=== PATIENT | female | born 1935 | race Caucasian/White ===

== ENCOUNTER 2018-07-11 14:04 | Inpatient (IN) | payer BC ==
[2018-07-11 15:28] LABS: BASO % 0.5 % (0-2.0); EOS % 0.4 % (0-4.5); HEMOGLOBIN 12.6 GM/dL (10.7-15.3); LYMPH % 26.6 % (8-40); MCH 32.5 pg (25.7-33.7); MCHC 33.1 g/dl (32.0-36.0); MEAN CELL VOLUME 98.2 fl (80-96); MEAN PLT VOLUME 9.5 fl (7.5-11.1); NEUT % 66.5 % (42.8-82.8); PLATELET COUNT 193 K/MM3 (134-434); RBC 3.87 M/mm3 (3.60-5.2); RDW 15.8 % (11.6-15.6)
--- NOTE | 2018-07-11 15:35 | PDOC ---
History of Present Illness - General Chief Complaint: Weakness Stated Complaint: Weakness - History of Present Illness Initial Comments: Amy Mireles is an 83yo woman with a PMH of HTN, CAD s/p "open heart surgery" (CABG?), chronic low back pain w/ BLE weakness L>R, overactive bladder , and dysfunctional vaginal bleeding who presents today reporting generalized weakness and worsening RLE weakness since she woke today along with hypotension. She reports that she was concerned that her BP was SBP 100 early this mon. She states that she checks every morning and evening because of her previous heart surgery. Per her son, at bedside, her BP is generally low in the morning; he is unsure how frequently it is down to the low 100s though states it has happened in the past. Ms Mireles states that she felt very weak and wobbly throughout the morning, but she was able to do housework by holding herself up on furniture. She rechecked her BP after the chores and noted that it was high, SBP in the upper 160's. She says that it has been "all over the place" recently , and she was concerned because "it is supposed to be 120/80." Ms Mireles states that she has leg weakness all the time and sees neurology ( Dr Doyle) and a spine/pain specialist who does injections. She says that she has chronic back pain because of "discs." Her left leg generally is weaker than the right, though, and she only started having significant problems with the right leg today. Ms Mireles denies any new medications, fevers, chills, nausea/vomiting, confusion, headache, or other recent symptoms. She says that she avoids drinking water because of the overactive bladder, and she recently started on oxybutinin. Per review, she also takes hydrocholorothiazide. Her son is very concerned about the number of medications that she takes daily and feels they are contributing to her symptoms. Past History - Past Medical History Allergies/Adverse Reactions: Allergies Allergy/AdvReac Type Severity Reaction Status Date / Time No Known Drug Allergies Allergy Verified 07/11/18 14:42 Home Medications: Ambulatory Orders Amlodipine Besylate [Norvasc -] 5 mg PO DAILY 07/11/18 Atenolol [Tenormin] 50 mg PO DAILY 07/11/18 Atorvastatin Calcium 40 mg PO HS 07/11/18 Clopidogrel Bisulfate [Clopidogrel] 75 mg PO DAILY 07/11/18 Ergocalciferol [Vitamin D2] 50,000 unit PO Q7D@1000 07/11/18 Hydrochlorothiazide [Hctz -] 25 mg PO DAILY 07/11/18 Levothyroxine [Synthroid -] 25 mcg PO DAILY 07/11/18 Lisinopril [Prinivil -] 40 mg PO DAILY 07/11/18 Oxybutynin Chloride [Ditropan Xl] 10 mg PO DAILY 07/11/18 Phenytoin Sodium Extended 100 mg PO TID 07/11/18 Cardiac Disorders: Yes COPD: No HTN: Yes Hypercholesterolemia: Yes Seizures: Yes Thyroid Disease: Yes - Surgical History Cardiac Surgery: Yes - Suicide/Smoking/Psychosocial Hx Smoking History: Never smoked Have you smoked in the past 12 months: No Information on smoking cessation initiated: No Hx Alcohol Use: No Drug/Substance Use Hx: No Review of Systems - Review of Systems Comments:: General: No fevers, no chills, no weight or appetite change, no malaise HEENT: No changes in vision, no changes in hearing, no congestion, no sore throat CV: No chest pain, no palpitations, no LE edema Pulm: No SOB, no cough, no wheezing GI: No nausea or vomiting, no change in bowel habits, no melena : +Frequency, no urgency, no dysuria Musc: +chronic back pain, no joint swelling, no recent injury Skin: No rash, no lesions, no erythema Endo: No excessive thirst, no heat/cold intolerance Heme: No unusual bruising or bleeding, no swollen glands Neuro: See HPI Vasc: No claudication Psych: No recent change in mood, no SI or HI *Physical Exam - Vital Signs Last Vital Signs Temp Pulse Resp BP Pulse Ox 98 F 57 L 13 158/67 99 07/11/18 14:33 07/11/18 14:33 07/11/18 14:33 07/11/18 14:33 07/11/18 14:33 - Physical Exam Comments: General: Comfortable, no acute distress HEENT: PERRL, EOMI, dry lips, voice normal Cards: RRR, no murmur appreciated Pulm: Comfortable on room air, clear to auscultation bilaterally Abd: Soft, nontender, nondistended : No CVA tenderness Ext: Atraumatic. No LE edema. Limited flexion on passive ROM. Vasc: Extremities WWP. Skin: Normal color, no rashes or lesions Neuro: A&Ox3, CN grossly intact, Mild RLE weakness w/ inability to lift leg off bed. BUE strength intact. Unable to relax BLE to passively flex knees Psych: Mood appropriate to situation ED Treatment Course - LABORATORY CBC & Chemistry Diagram: 07/11/18 15:08 07/11/18 17:13 - RADIOLOGY Radiology Studies Ordered: Category Date Time Status CHEST X-RAY PORTABLE* [RAD] Stat Radiology 07/11/18 15:00 Ordered Medical Decision Making - Medical Decision Making 07/11/18 15:24 Amy Mireles is an 83yo woman with a PMH of HTN, CAD s/p "open heart surgery" (CABG?), chronic low back pain w/ BLE weakness, L>R, overactive bladder , and dysfunctional vaginal bleeding who presents today reporting generalized weakness and worsening RLE weakness since she woke today. She reports that her BP was low, around 100, in the morning which is reportedly typical for her. Per discussion with Ms Mireles and her son, it is unclear which symptoms if any are new today. - Generalized weakness and RLE weakness may be new today. Ddx includes anemia, UTI, dehydration, electrolyte abnormality. No focal infectious symptoms or fever , not likely due to infection. No chest pain or SOB, unlikely cardiac. - CBC, CMP, mag, phos, trop, EKG, CXR, UA for evaluation. Dilantin level ordered to verify. - Will attempt to contact pt's outpatient generalist, adjudication specialist, and neurologist (Naeem Menezes, [place]) 07/11/18 16:17 - Spoke to Dr Doyle. Reports that she has significant degenerative brain changes. He was concerned for a possible new CVA 3wks ago and had ordered a CT head, which has not yet been completed. Notes increased tone in BLE. Agrees with plan for new CT to determine if there are new changes. 07/11/18 17:03 - Chemistry hemolized. Reordered. CBC unremarkable - CXR reviewed, no concerning abnormalities - EKG w/ sinus bradycardia, HR 53, incomplete RBBB. 07/11/18 19:57 - Labs unremarkable - CT completed. Multiple chronic abnormalities but no acute pathology appreciated per radiology report - Will need MRI for new LE weakness, possible new CVA. Microblog sent to hospitalist team for admission. 07/11/18 20:57 - Sign out given to Dr Mayorga. Will admit to Dr Salazar's service. Discussed with Dr Melgar. Juliann Chisholm PGY1 *DC/Admit/Observation/Transfer Diagnosis at time of Disposition: Lower extremity weakness - Discharge Dispostion Decision to Admit order: Yes - Referrals Referrals: Cedrick Marin [Primary Care Provider] - - Patient Instructions - Post Discharge Activity
[2018-07-11 15:41] LABS: INR 0.97 (0.83-1.09); PROTHROMBIN TIME (PATIENT) 11.5 SEC (9.7-13.0)
[2018-07-11 15:43] LABS: ACTIVATED PTT 31.5 SECONDS (25.2-36.5)
--- NOTE | 2018-07-11 17:24 | PDOC ---
Attending Attestation - HPI HPI: 07/11/18 17:27 The patient is an 83-year-old female with past medical history significant for Chronic back pain (follows Dr. Hartley for pain management), HTN, HLD, thyroid disease, and hx of seizure presents to the emergency department with weakness and lightheadedness. The patient reports she woke up today with right leg weakness and lightheadedness. The patient states secondary to the weakness she was unable to ambulate. The patient reports secondary to hx of open heart surgery and bypass, she checks her BP daily, and today it was noted to be in low 100s. The patient states her baseline is 127-137. Denies chest pain/ pressure or shortness of breath. The patient reports an additional concern of intermittent vaginal bleeding with exertion. The patient reports additional concern for urinary frequency, reports following up at [facility] for an ultrasound. The son reports she was placed on Oxybutynin, however, hasn t picked it up from the pharmacy yet. CT scheduled on the 20 of July. MRI did in 2014. The patient reports she had an echo scheduled for today, which she couldnt follow up with. Per Dr. Sutton: The patient has degenerative brain changes, hx of stroke in the past, and possibly a recent stroke. The doctor reports generally she has increased bilateral tone, due to the brain changes. PCP: Dr. Rodgers Cardiology: Dr. Cadet Pain Management: Dr. Hartley Neurology: Dr. Sutton. - Medical Decision Making 07/11/18 17:27 Phone call call placed to Dr. Rodgers at 5:13 pm. Case discussed with Dr. Rodgers. <Saritha Martinez - Last Filed: 07/11/18 17:26> - Resident Resident Name: Juliann Chisholm - ED Attending Attestation I have performed the following: I have examined & evaluated the patient, The case was reviewed & discussed with the resident, I agree w/resident's findings & plan, Exceptions are as noted - Physicial Exam PE: 07/11/18 20:04 pt with alert oriented normal heart rrr no mrg abd soft nt nd. and lung clear bilaterally strength 5/5 bilat upper ext. right leg 4/5 left leg 5/5. sensation intact. speech clear. CN II - XII intact. 2 + dp / pt . - Medical Decision Making 07/11/18 17:05 83 yo F htn, cabg, cad chronic back pain (follows pain management) dysfunctional uterine bleeding, and stress incontinence here with c/o weaknesss , low bp this am, . 106 sbp, when she checked her bp this am. pt states normally her left leg is weak but since yesterday her right leg is weak. no n/v no f/c. is eating and drinking ok but goes to bathroom often. per her son, pt states she does nt drink much because she hates going to bathroom all the time and believes she is on too many medications. nuerologist dr sutton pcp: dr rodgers [phone] cadet. pt with alert oriented normal heart and lung exam. strength 5/5 bilat upper ext. right leg 4/5 left leg 5/5. sensatio intact. speech clear. differential: infection such as uti or pna, dehydration, anemia, cardiac event causing weakness, new cva, plan ct head labs ua cxr ekg. troponin c/w dr rodgers, who states pt has had prior cva, he believes left sided weakness , and has had low bp on last visit. <Erica Melgar - Last Filed: 07/11/18 20:06> Heart Score/ECG Review #1 General ECG Interpretation: Sinus Rhythm, Normal Rate (53), Normal Intervals, No acute ischemic changes <Erica Melgar - Last Filed: 07/11/18 20:06> NIH Stroke Scale - Initial Evaluation Level of consciousness: Alert Ask patient the month and their age: Answers both correctly Ask patient to open & close eyes; make fist and let go: Obeys both correctly Best gaze (horizontal eye movement): Normal Visual field testing: No visual field loss Facial paresis (Show teeth/raise eyebrows/close eyes tight): Normal symmetrical movement Motor Function: Left Arm: Normal Motor Function: Right Arm: Normal (extends arm 90 (or 45) degrees for 10 seconds without drift Motor Function: Left Leg: Normal (extends leg 30 degrees for 5 seconds without drift) Motor Function: Right Leg: Drift Limb Ataxia: No ataxia Sensory(Use pinprick test arms,legs,trunk,face/side to side): Normal Best language (Describe picture, name items, read sentences): No Aphasia Dysarthria (read several words): Normal articulation Extinction and Inattention: No abnormality - Total Score NIH Stroke Scale Score: 1 <Erica Melgar - Last Filed: 07/11/18 20:06>
[2018-07-11 17:57] LABS: ALBUMIN 3.3 g/dl (3.4-5.0); ALK PHOS 36 U/L (45-117); ANION GAP 8 MMOL/L (8-16); BILIRUBIN,TOTAL 0.3 mg/dL (0.2-1); BLOOD UREA NITROGEN 32 mg/dL (7-18); CHLORIDE 104 mmol/L (98-107); CO2 29 mmol/L (21-32); CREATININE 0.9 mg/dL (0.55-1.3); GLUCOSE,RANDOM 87 mg/dL (74-106); MAGNESIUM 2.3 mg/dL (1.8-2.4); PHOSPHOROUS 4.3 mg/dL (2.5-4.9); POTASSIUM 4.3 mmol/L (3.5-5.1); SGOT/AST 32 U/L (15-37); SGPT/ALT 69 U/L (13-61); SODIUM 141 mmol/L (136-145); TOT PROT 7.3 g/dl (6.4-8.2)
--- NOTE | 2018-07-11 21:03 | PN ---
Teaching Attending Note Name of Resident: Tico Mayorga ATTENDING PHYSICIAN STATEMENT I saw and evaluated the patient. I reviewed the resident's note and discussed the case with the resident. I agree with the resident's findings and plan as documented. SUBJECTIVE: Patient is an 83-year-old woman with PMH of Chronic back pain (Sees Dr. Hartley for pain management), HTN, HLD, thyroid disease, CVA and Seizure who presents to the ER with weakness and lightheadedness. The patient reports she woke up today with right leg weakness and lightheadedness. The patient states secondary to the weakness she was unable to ambulate. The patient reports her systolic BP was noted to be in low 100s today. Her baseline is 127-137. Denies chest pain/ pressure or shortness of breath. Has intermittent vaginal bleeding with exertion and urinary frequency. She admits to chronic leg weakness and sees neurology (Dr Doyle) and a spine/ pain specialist who does injections. She says that she has chronic back pain because of "discs." Her left leg generally is weaker than the right, though, and she only started having significant problems with the right leg today. She also fell onto the toilet seat today, but unclear if she had LOC. Has chronic postprandial loose bowel movement and urinary incontinence. Patient denies any new medications, fevers, chills, nausea/vomiting, confusion or headache. She says that she avoids drinking water because of the overactive bladder, and she recently started on oxybutinin and also takes Hydrochlorothiazide. Says her BP is always low in the morning. Her son is very concerned about the number of medications that she takes daily and feels they are contributing to her symptoms. OBJECTIVE: Alert Vital Signs Period Temp Pulse Resp BP Sys/Burton Pulse Ox Last 24 Hr 98 F 57 13 158/67 99 HEENT: No Jaundice, eye redness or discharge, PERRLA, EOMI. Normocephalic, atraumatic. External ears are normal and hearing is grossly intact. No nasal discharge. Neck: Supple, nontender. No palpable adenopathy or thyromegaly. No JVD Chest: Good effort. Clear to auscultation and percussion. Heart: Regular. No S3, rub or murmur Abdomen: Not distended, soft, nontender and no HSM. No rebound or guarding. Normal bowel sounds. Ext: Peripheral pulses intact. No leg edema. Has diapers. Skin: Warm and dry. No petechiae, rash or ecchymosis. Neuro: Alert. Oriented x3. CN 2-12 grossly intact. Sensation grossly intact in all four extremities and DTR are symmetric. Slow gait. Plantar reflexes are flexor. Psych: Appropriate mood and affect. Good insight. Home Medications Medication Instructions Recorded Amlodipine Besylate [Norvasc -] 5 mg PO DAILY 07/11/18 Atenolol [Tenormin] 50 mg PO DAILY 07/11/18 Atorvastatin Calcium 40 mg PO HS 07/11/18 Clopidogrel Bisulfate [Clopidogrel] 75 mg PO DAILY 07/11/18 Ergocalciferol [Vitamin D2] 50,000 unit PO Q7D@1000 07/11/18 Hydrochlorothiazide [Hctz -] 25 mg PO DAILY 07/11/18 Levothyroxine [Synthroid -] 25 mcg PO DAILY 07/11/18 Lisinopril [Prinivil -] 40 mg PO DAILY 07/11/18 Oxybutynin Chloride [Ditropan Xl] 10 mg PO DAILY 07/11/18 Phenytoin Sodium Extended 100 mg PO TID 07/11/18 Abnormal Lab Results 07/11/18 07/11/18 15:08 17:13 MCV 98.2 H RDW 15.8 H BUN 32 H ALT 69 H Alkaline Phosphatase 36 L Albumin 3.3 L ASSESSMENT AND PLAN: 1. Rule out CVA/?Syncope - NIHSS score was 1. Head CT without contrast shows multiple old infarcts, with no evidence of acute pathology. No acute abnormality on CXR. EKG shows sinus bradycardia, incomplete RBBB and no significant ST-T wave changes. Will get brain MRI to rule out new CVA; carotid doppler, ECHO, consult PT, neurology and cardiology and monitor her on telemetry. Do neurochecks and implement fall precautions. Consult WEB DEVELOPMENT MANAGER for vaginal bleeding and GI for post prandial diarrhea. Hypertension - will revise her outpatient antihypertensive regimen: discontinue HCTZ, reduce Atenolol to 25 mg PO q HS and change Lisinopril to 10 mg bid and continue amlodipine 5 mg q am. Nonpharmacologic measures to control hypertension like weight loss, salt restriction and exercise discussed. 2. Hypoalbuminemia - Possibly due to combined effects of malnutrition and inflammation associated with comorbid chronic conditions. Will rule out proteinuria. Will ensure adequate dietary protein intake and also consult seater grinder. 3. DVT prophylaxis - Lovenox 40 mg SQ q 24 hours. 4. Advance directives - Full code
--- NOTE | 2018-07-11 21:16 | HP ---
CHIEF COMPLAINT:syncope PCP: does not know HISTORY OF PRESENT ILLNESS: mAy Mireles is an 83yo woman with a PMH of HTN, CAD s/p "open heart surgery" (CABG?), chronic low back pain w/ BLE weakness L>R, overactive bladder , and dysfunctional vaginal bleeding who presents today reporting generalized weakness and worsening RLE weakness since she woke today along with hypotension. She reports that she was concerned that her BP was SBP 100 early this mon. She states that she checks every morning and evening because of her previous heart surgery. Per her son, at bedside, her BP is generally low in the morning; he is unsure how frequently it is down to the low 100s though states it has happened in the past. Ms Mireles states that she felt very weak and wobbly throughout the morning, but she was able to do housework by holding herself up on furniture. She rechecked her BP after the chores and noted that it was high, SBP in the upper 160's. She says that it has been "all over the place" recently , and she was concerned because "it is supposed to be 120/80." Ms Mireles states that she has leg weakness all the time and sees neurology ( Dr Doyle) and a spine/pain specialist who does injections. She says that she has chronic back pain because of "discs." Her left leg generally is weaker than the right, though, and she only started having significant problems with the right leg today. Ms Mireles denies any new medications, fevers, chills, nausea/vomiting, confusion, headache, or other recent symptoms. She says that she avoids drinking water because of the overactive bladder, and she recently started on oxybutinin. Per review, she also takes hydrocholorothiazide. Her son is very concerned about the number of medications that she takes daily and feels they are contributing to her symptoms. ER course was notable for: (1)head CT (2)cbc, cmp (3) Recent Travel:denies PAST MEDICAL HISTORY: HTN, HLD, CAD S.P CABG, over active bladder , chronic back pain , lower ext weakness , unstable gait PAST SURGICAL HISTORY: CABG , carotid Social History: Smoking:denies Alcohol:denies Drugs: denies Family History: Allergies No Known Drug Allergies Allergy (Verified 07/11/18 14:42) HOME MEDICATIONS: Home Medications Medication Instructions Recorded Amlodipine Besylate [Norvasc -] 5 mg PO DAILY 07/11/18 Atenolol [Tenormin] 50 mg PO DAILY 07/11/18 Atorvastatin Calcium 40 mg PO HS 07/11/18 Clopidogrel Bisulfate [Clopidogrel] 75 mg PO DAILY 07/11/18 Ergocalciferol [Vitamin D2] 50,000 unit PO Q7D@1000 07/11/18 Hydrochlorothiazide [Hctz -] 25 mg PO DAILY 07/11/18 Levothyroxine [Synthroid -] 25 mcg PO DAILY 07/11/18 Lisinopril [Prinivil -] 40 mg PO DAILY 07/11/18 Oxybutynin Chloride [Ditropan Xl] 10 mg PO DAILY 07/11/18 Phenytoin Sodium Extended 100 mg PO TID 07/11/18 REVIEW OF SYSTEMS CONSTITUTIONAL: Absent: fever, chills, diaphoresis, generalized weakness, malaise, loss of appetite, weight change HEENT: Absent: rhinorrhea, nasal congestion, throat pain, throat swelling, difficulty swallowing, mouth swelling, ear pain, eye pain, visual changes CARDIOVASCULAR: Absent: chest pain, syncope, palpitations, irregular heart rate, lightheadedness , peripheral edema RESPIRATORY: Absent: cough, shortness of breath, dyspnea with exertion, orthopnea, wheezing, stridor, hemoptysis GASTROINTESTINAL: Absent: abdominal pain, abdominal distension, nausea, vomiting, diarrhea, constipation, melena, hematochezia GENITOURINARY: Absent: dysuria, frequency, urgency, hesitancy, hematuria, flank pain, genital pain MUSCULOSKELETAL: Absent: myalgia, arthralgia, joint swelling, back pain, neck pain SKIN: Absent: rash, itching, pallor HEMATOLOGIC/IMMUNOLOGIC: Absent: easy bleeding, easy bruising, lymphadenopathy, frequent infections ENDOCRINE: Absent: unexplained weight gain, unexplained weight loss, heat intolerance, cold intolerance NEUROLOGIC: Absent: headache, focal weakness or paresthesias, dizziness, unsteady gait, seizure, mental status changes, bladder or bowel incontinence PSYCHIATRIC: Absent: anxiety, depression, suicidal or homicidal ideation, hallucinations. PHYSICAL EXAMINATION Vital Signs - 24 hr 07/11/18 14:33 Temperature 98 F Pulse Rate 57 L Respiratory 13 Rate Blood Pressure 158/67 O2 Sat by Pulse 99 Oximetry (%) GENERAL: AAOx3 in NAD , with urine smell due to incontinence HEAD: NC/AT EYES: EOMI, Conjunctiva clear, sclera anicteric ENT: dry mucous membrane NECK: Supple, no JVD LUNGS: CTA B/L, no crackles no wheezing no accessory muscle use. HEART: RRR, NSR, normal s1, s2, no M/R/G ABDOMEN: Soft, ND, NT, +BS 4 Q, no CVA Tenderness LOWER EXTREMITIES: no edema, +2DP pulse, NEUROLOGICAL: No focal deficit. Normal speech. unsteady gait , walk few steps with 2 people help , move all ext but weak more on left leg sensation intact , upper ext 5/5 , normal reflexes , right LE 5/5 , LLE 4/5 PSYCHIATRIC: Cooperative. SKIN: Warm, dry, Laboratory Results - last 24 hr 07/11/18 07/11/18 07/11/18 15:08 15:08 15:08 WBC 9.0 RBC 3.87 Hgb 12.6 Hct 38.0 MCV 98.2 H MCH 32.5 MCHC 33.1 RDW 15.8 H Plt Count 193 MPV 9.5 Absolute Neuts (auto) 6.0 Neutrophils % 66.5 Lymphocytes % 26.6 Monocytes % 6.0 Eosinophils % 0.4 Basophils % 0.5 Nucleated RBC % 0 PT with INR INR PTT (Actin FS) Sodium Cancelled Potassium Cancelled Chloride Cancelled Carbon Dioxide Cancelled Anion Gap Cancelled BUN Cancelled Creatinine Cancelled Creat Clearance w eGFR Cancelled Random Glucose Cancelled Calcium Cancelled Phosphorus Cancelled Magnesium Cancelled Total Bilirubin Cancelled AST Cancelled ALT Cancelled Alkaline Phosphatase Cancelled Creatine Kinase Cancelled Creatine Kinase Index Cancelled CK-MB (CK-2) Cancelled Troponin I Cancelled Total Protein Cancelled Albumin Cancelled Phenytoin 11.7 07/11/18 07/11/18 15:08 17:13 WBC RBC Hgb Hct MCV MCH MCHC RDW Plt Count MPV Absolute Neuts (auto) Neutrophils % Lymphocytes % Monocytes % Eosinophils % Basophils % Nucleated RBC % PT with INR 11.50 INR 0.97 PTT (Actin FS) 31.5 Sodium 141 Potassium 4.3 Chloride 104 Carbon Dioxide 29 Anion Gap 8 BUN 32 H Creatinine 0.9 Creat Clearance w eGFR 59.80 Random Glucose 87 Calcium 9.0 Phosphorus 4.3 Magnesium 2.3 Total Bilirubin 0.3 AST 32 ALT 69 H Alkaline Phosphatase 36 L Creatine Kinase 74 Creatine Kinase Index CK-MB (CK-2) Troponin I < 0.02 Total Protein 7.3 Albumin 3.3 L Phenytoin CBC, BMP 07/11/18 15:08 07/11/18 17:13 EKG Sinus jess with QTC 437 , no st, t wave changes CXR no acute pathology Head CT without contrast :multiple old infarct left occipital, B/L frontal and chronic puncate pontine infarct but nop acute infarct. ASSESSMENT/PLAN: 83yo woman with a PMH of HTN, CAD s/p "open heart surgery" (CABG?), chronic low back pain w/ BLE weakness L>R, overactive bladder, and dysfunctional vaginal bleeding who presents today reporting generalized weakness and worsening RLE weakness presented to ED after she syncopised in the bath room but denies hitting her head . 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 * Cardiology Dr villeda consulted and Neurology Dr Doyle consulted # Mild YVETTE likely pre renal * Hold HCTZ , hold lisinopril * Gentle hydration * repeat after hydration * Urine lytres * urine NA, FENA # HTN, labile * cont norvasc * Orthostatics negative 158/66 laying flat , 151/69 sitting * hold HCTZ and resume lisinopril when hemo dynamically stable # HLD * cont Atorvastatin 40 HS # CAD S/P CABG , amgina pectoris # DCHF * cont , Plavix 75 , Norvasc 5 , hold HCTZ , Hold Lisinopril till hemodynamically stable * Echo in 2017 eith EF 60-65% repeat echo in AM * cardiology Dr shearer consulted # hypothyrodism * TSH * cont synthroid home dose # Seizure * cont Phenytoin TID # chronic back pain * PT, Tyelenool for pain # Over active bladder * cont Oxybiotin , hold HCTZ # FEN * F: encourage intake * monitor lytes * low sodium diet # Proph * Dvts: SCDs, Lovenox 40 mg po SQ daily # Dispo * obs tele * might benifit from GREGORIO # full code Visit type - Emergency Visit Emergency Visit: Yes ED Registration Date: 07/12/18 Care time: The patient presented to the Emergency Department on the above date and was hospitalized for further evaluation of their emergent condition. - New Patient This patient is new to me today: Yes Date on this admission: 07/12/18 - Critical Care Critical Care patient: No
[2018-07-11 23:43] VITALS: BMI 23.9
[2018-07-12 03:16] LABS: EPI CELLS 0.2 /HPF (0-5); PH,URINE 5.5 (5.0-8.0); URINE APPEARANCE CLEAR; URINE BACTERIA 5610.6 /hpf (NEGATIVE); URINE BILIRUBIN NEGATIVE (NEGATIVE); URINE CASTS 4 /hpf (0-8); URINE COLOR YELLOW; URINE GLUCOSE (UA) NEGATIVE (NEGATIVE); URINE KETONE NEGATIVE (NEGATIVE); URINE LEUK ESTERASE 1+ (NEGATIVE); URINE NITRITE NEGATIVE (NEGATIVE); URINE PROTEIN NEGATIVE (NEGATIVE); URINE RBC 2 /hpf (0-4); URINE UROBILINOGEN 0.2 mg/dL (0.2-1.0); URINE WBC 25 /hpf (0-5)
[2018-07-12] MEDS: PHENYTOIN NA EXTENDED 100 MG CAPSULE (FP) PO SCH ×3 (06:21→21:41)
[2018-07-12] MEDS: LEVOTHYROXINE NA 25 MCG TABLET (FP) PO SCH (06:21)
[2018-07-12 07:27] LABS: BASO % 0.7 % (0-2.0); EOS % 0.4 % (0-4.5); HEMATOCRIT 34.8 % (32.4-45.2); HEMOGLOBIN 11.6 GM/dL (10.7-15.3); LYMPH % 31.9 % (8-40); MCH 32.7 pg (25.7-33.7); MCHC 33.3 g/dl (32.0-36.0); MEAN CELL VOLUME 98.2 fl (80-96); MONO % 6.5 % (3.8-10.2); NEUT % 60.5 % (42.8-82.8); PLATELET COUNT 178 K/MM3 (134-434); RBC 3.55 M/mm3 (3.60-5.2); WHITE BLOOD COUNT 7.4 K/mm3 (4.0-10.0)
[2018-07-12 07:47] LABS: INR 1.04 (0.83-1.09); PROTHROMBIN TIME (PATIENT) 12.3 SEC (9.7-13.0)
[2018-07-12 07:50] LABS: ACTIVATED PTT 31.2 SECONDS (25.2-36.5)
[2018-07-12 08:12] LABS: ALBUMIN 3.1 g/dl (3.4-5.0); ALK PHOS 35 U/L (45-117); BILIRUBIN,TOTAL 0.2 mg/dL (0.2-1); BLOOD UREA NITROGEN 32 mg/dL (7-18); CALCIUM 8.8 mg/dL (8.5-10.1); CHLORIDE 105 mmol/L (98-107); CO2 28 mmol/L (21-32); CREATININE 0.9 mg/dL (0.55-1.3); GLUCOSE,RANDOM 100 mg/dL (74-106); MAGNESIUM 2.2 mg/dL (1.8-2.4); N-TERMINAL BNP 104.4 pg/ml (5-450); PHOSPHOROUS 4.8 mg/dL (2.5-4.9); POTASSIUM 4.2 mmol/L (3.5-5.1); SGOT/AST 30 U/L (15-37); SGPT/ALT 63 U/L (13-61); SODIUM 140 mmol/L (136-145)
[2018-07-12 08:27] LABS: ANION GAP 8 MMOL/L (8-16)
--- NOTE | 2018-07-12 09:18 | CON.CARD ---
Consult Consult Specialty:: Cardiology Referred by:: Hospitalist Medicine Reason for Consultation:: Light-headedness and weakness - History of Present Illness Chief Complaint: Light-headedness and weakness History of Present Illness: Patient is an 83-year-old woman with PMH of CAD s/p CABG 03/01/2004 KIM->LAD, SVG->LAD-D1, SVG->OM1 and SVG->RPDA), diastolc dysfunction, labile HTN, HLD, thyroid disease, CVA with residual deficits, s/p left CEA, CKD, seizure d/o, chronic LBP last seen in office 06/19/2018 presents with weakness and lightheadedness without true syncope. The patient reports she woke up today with right leg weakness and lightheadedness. The patient states secondary to the weakness she was unable to ambulate, usually ambulates with cane assistance. The patient reports her systolic BP was noted to be in low 100s today. Her baseline is 127-137. Denies chest pain/pressure or shortness of breath, true syncope, palpitations, orthopnea, PND or LE edema. She admits to chronic leg weakness and sees neurology (Dr Doyle) and a spine/pain specialist who does injections. She says that she has chronic back pain because of "discs. " H - History Source History Provided By: Patient Limitations to Obtaining History: No Limitations - Past Medical History Cardio/Vascular: Yes: HTN - Alcohol/Substance Use Hx Alcohol Use: No - Smoking History Smoking history: Never smoked Have you smoked in the past 12 months: No Home Medications - Allergies Allergies/Adverse Reactions: Allergies Allergy/AdvReac Type Severity Reaction Status Date / Time No Known Drug Allergies Allergy Verified 07/11/18 14:42 - Home Medications Home Medications: Ambulatory Orders Amlodipine Besylate [Norvasc -] 5 mg PO DAILY 07/11/18 Atenolol [Tenormin] 50 mg PO DAILY 07/11/18 Atorvastatin Calcium 40 mg PO HS 07/11/18 Clopidogrel Bisulfate [Clopidogrel] 75 mg PO DAILY 07/11/18 Ergocalciferol [Vitamin D2] 50,000 unit PO Q7D@1000 07/11/18 Hydrochlorothiazide [Hctz -] 25 mg PO DAILY 07/11/18 Levothyroxine [Synthroid -] 25 mcg PO DAILY 07/11/18 Lisinopril [Prinivil -] 40 mg PO DAILY 07/11/18 Oxybutynin Chloride [Ditropan Xl] 10 mg PO DAILY 07/11/18 Phenytoin Sodium Extended 100 mg PO TID 07/11/18 Review of Systems - Review of Systems Constitutional: reports: Weakness Neurological: reports: Dizziness Vital Signs: Vital Signs Temperature 98 F 07/12/18 09:00 Pulse Rate 60 07/12/18 09:00 Respiratory Rate 20 07/12/18 09:00 Blood Pressure 157/62 07/12/18 09:00 O2 Sat by Pulse Oximetry (%) 98 07/11/18 22:09 Constitutional: Yes: No Distress, Calm Neck: Yes: Supple Respiratory: Yes: Regular, CTA Bilaterally Gastrointestinal: Yes: Normal Bowel Sounds, Soft Cardiovascular: Yes: Regular Rate and Rhythm JVD: No Carotid Bruit: No Heart Sounds: Yes: S1, S2 Murmur: Yes: Systolic Murmur, Grade 2 Edema: No - Other Data Labs, Other Data: CBC, BMP 07/12/18 05:30 07/12/18 05:30 INR, PTT INR 1.04 (0.83-1.09) 07/12/18 05:30 Troponin, BNP 07/11/18 07/11/18 07/11/18 15:08 17:13 23:35 Troponin I Cancelled < 0.02 < 0.02 B-Natriuretic Peptide 07/12/18 05:30 Troponin I B-Natriuretic Peptide 104.4 Troponin, BNP 07/11/18 07/11/18 07/11/18 15:08 17:13 23:35 Troponin I Cancelled < 0.02 < 0.02 B-Natriuretic Peptide 07/12/18 05:30 Troponin I B-Natriuretic Peptide 104.4 EKG shows sinus bradycardia, incomplete RBBB and no significant ST-T wave changes. Ejection Fraction %: LVEF > or = 40 % Imaging - Results Chest X-ray: Report Reviewed ( No acute abnormality on CXR.) Cat Scan: Report Reviewed (Head CT without contrast shows multiple old infarcts , with no evidence of acute pathology.) Problem List - Problems (1) Near syncope Code(s): R55 - SYNCOPE AND COLLAPSE (2) S/P CABG (coronary artery bypass graft) Code(s): Z95.1 - PRESENCE OF AORTOCORONARY BYPASS GRAFT (3) Hyperlipidemia Code(s): E78.5 - HYPERLIPIDEMIA, UNSPECIFIED Qualifiers: Hyperlipidemia type: pure hypercholesterolemia Qualified Code(s): E78.00 - Pure hypercholesterolemia, unspecified; E78.0 - Pure hypercholesterolemia (4) Labile hypertension Code(s): R09.89 - OTH SYMPTOMS AND SIGNS INVOLVING THE CIRC AND RESP SYSTEMS (5) Diastolic dysfunction Code(s): I51.89 - OTHER ILL-DEFINED HEART DISEASES (6) CVA, old, ataxia Code(s): I69.993 - ATAXIA FOLLOWING UNSPECIFIED CEREBROVASCULAR DISEASE Assessment/Plan 03/13/2017 Normal LV size and fxn LVEF 60-65%, normal RV size and fxn, mild-mod MR, mild TR RVSP 25.9 mmHg 03/14/2017 No ischemia, normal LVEF 77% 1. Rule out new CVA/ Near Syncope 2. CAD s/p CABG, angina pectoris 3. Diastolic dysfunction 4. Labile hypertension 5. Hyperlipidemia 6. s/p left CEA P:1. Agree with d/c HCTZ, continue norvasc 5 qd, atenolol 50 qd with check orthostatic VS, resume lisinopril as hemodynamics tolerate 2. F/u echo, carotid, ivelisse MRI, patient is planned for outpatient lexiscan myoview 3. Thank you for consultative opportunity
--- NOTE | 2018-07-12 09:37 | CON.NEURO ---
Consult - History of Present Illness History of Present Illness: 83-year-old woman with PMH of CAD s/p CABG 03/01/2004 KIM->LAD, SVG->LAD-D1, SVG->OM1 and SVG->RPDA), diastolc dysfunction, labile HTN, HLD, thyroid disease , CVA with residual deficits, s/p left CEA, CKD, seizure d/o, chronic LBP presents with weakness and lightheadedness and right leg weakness. The patient states secondary to the weakness she was unable to ambulate, usually ambulates with cane assistance. The patient reports her systolic BP was noted to be in low 100s today. Her baseline is 127-137. Denies chest pain/pressure or shortness of breath, true syncope, palpitations, orthopnea, PND or LE edema. I have seen her for LBP and LS spondylosis in past. This AM, feels weakness is limited by blood pressure rather her low back an neck pain. CT HD 07/11/18 Impression: No definite CT evidence of acute intracranial pathology. Chronic left frontal cortical infarct. Chronic left occipital cortical infarct. Small chronic frontal subcortical white matter infarcts bilaterally. Possible chronic punctate pontine infarcts. MRI [facility] 04/26 Impression: Extensive old ischemic changes in the tiago and in the white matter of both cerebral hemispheres sequela most probably to long-standing hypertension and small vessel disease would There is small 5 mm nonhemorrhagic acute infarction in the right parietal lobe adjacent to the body of right lateral ventricle. The cerebellopontine angles unremarkable. No evidence of acute intracerebral hemorrhage or subdural fluid collection. Moderate dilatation of the lateral ventricles with moderate loss of volume both cerebral hemispheres. - Alcohol/Substance Use Hx Alcohol Use: No - Smoking History Smoking history: Never smoked Have you smoked in the past 12 months: No Home Medications - Allergies Allergies/Adverse Reactions: Allergies Allergy/AdvReac Type Severity Reaction Status Date / Time No Known Drug Allergies Allergy Verified 07/11/18 14:42 - Home Medications Home Medications: Ambulatory Orders Amlodipine Besylate [Norvasc -] 5 mg PO DAILY 07/11/18 Atenolol [Tenormin] 50 mg PO DAILY 07/11/18 Atorvastatin Calcium 40 mg PO HS 07/11/18 Clopidogrel Bisulfate [Clopidogrel] 75 mg PO DAILY 07/11/18 Ergocalciferol [Vitamin D2] 50,000 unit PO Q7D@1000 07/11/18 Hydrochlorothiazide [Hctz -] 25 mg PO DAILY 07/11/18 Levothyroxine [Synthroid -] 25 mcg PO DAILY 07/11/18 Lisinopril [Prinivil -] 40 mg PO DAILY 07/11/18 Oxybutynin Chloride [Ditropan Xl] 10 mg PO DAILY 07/11/18 Phenytoin Sodium Extended 100 mg PO TID 07/11/18 Physical Exam-Neuro Vital Signs: Vital Signs Temperature 98 F 07/12/18 09:00 Pulse Rate 60 07/12/18 09:00 Respiratory Rate 20 07/12/18 09:00 Blood Pressure 157/62 07/12/18 09:00 O2 Sat by Pulse Oximetry (%) 98 07/11/18 22:09 Labs: CBC, BMP 07/12/18 05:30 07/12/18 05:30 INR, PTT INR 1.04 (0.83-1.09) 07/12/18 05:30 - Neuro Exam Level Of Consciousness: Yes: Alert (awake, EOMI, no facial, motor slight RUE drift, and LLE drift , inc tone BL LE, plantars down ) Imaging - Results Cat Scan: Report Reviewed, Image Reviewed Problem List - Problems (1) CVA, old, ataxia Code(s): I69.993 - ATAXIA FOLLOWING UNSPECIFIED CEREBROVASCULAR DISEASE (2) Labile hypertension Code(s): R09.89 - OTH SYMPTOMS AND SIGNS INVOLVING THE CIRC AND RESP SYSTEMS (3) Lower extremity weakness Code(s): R29.898 - OTH SYMPTOMS AND SIGNS INVOLVING THE MUSCULOSKELETAL SYSTEM Assessment/Plan 83-year-old woman with PMH of CAD s/p CABG 03/01/2004 labile HTN, HLD, thyroid disease, CVA with residual deficits, s/p left CEA, CKD, seizure d/o, chronic LBP presents with weakness and lightheadedness and right leg weakness. The patient states secondary to the weakness she was unable to ambulate, usually ambulates with cane assistance. The patient reports her systolic BP was noted to be in low 100s today. Her baseline is 127-137. Denies chest pain/pressure or shortn ess of breath, true syncope, palpitations, orthopnea, PND or LE edema. I have seen her for LBP and LS spondylosis in past. CT HD 07/11/18 Impression: No definite CT evidence of acute intracranial pathology. Chronic left frontal cortical infarct. Chronic left occipital cortical infarct. Small chronic frontal subcortical white matter infarcts bilaterally. Possible chronic punctate pontine infarcts. MRI [facility] 04/26 Impression: Extensive old ischemic changes in the tiago and in the white matter of both cerebral hemispheres sequela most probably to long-standing hypertension and small vessel disease would There is small 5 mm nonhemorrhagic acute infarction in the right parietal lobe adjacent to the body of right lateral ventricle. The cerebellopontine angles unremarkable. No evidence of acute intracerebral hemorrhage or subdural fluid collection. Moderate dilatation of the lateral ventricles with moderate loss of volume both cerebral hemispheres. AP : HX as above with gait disturbance , unclear if this represents a new ischemic event vs blood pressure mediated; less likely LS spine disease although she has documented spinal DJD . residual deficits on exam form prior strokes. please check MRI BRAIN and Doppler --cont plavix and statin PT and gait REHAB seizures-stable, cont dilantin Cardiology FU , BP appears to be stable now DR ANDRADE
[2018-07-12] MEDS ORDERED: PT OWN MED DRAWER 7, Y5N ONE (09:38)
[2018-07-12] MEDS: ENOXAPARIN NA (PORCINE) 40 MG/0.4 ML DISP.SYRIN SQ SCH (10:25)
[2018-07-12] MEDS: amLODIPine BESYLATE 5 MG TABLET (FP) PO SCH (10:25)
[2018-07-12] MEDS: CLOPIDOGREL BISULFATE 75 MG TABLET (FP) PO SCH (10:26)
[2018-07-12] MEDS: SOLIFENACIN SUCCINATE 5 MG TAB (FP) PO SCH (10:26)
[2018-07-12] MEDS: ATENOLOL 50 MG TABLET (FP) PO SCH (10:26)
--- NOTE | 2018-07-12 12:24 | EKG ---
Test Reason : Blood Pressure : / mmHG Vent. Rate : 053 BPM Atrial Rate : 053 BPM P-R Int : 176 ms QRS Dur : 108 ms QT Int : 466 ms P-R-T Axes : 064 020 039 degrees QTc Int : 437 ms SINUS BRADYCARDIA INCOMPLETE RIGHT BUNDLE BRANCH BLOCK BORDERLINE ECG NO PREVIOUS ECGS AVAILABLE Confirmed by CAPRICE WEST, HOLLIS ([id number]) on 07/12/2018 12:24:22 PM Referred By: Confirmed By:HOLLIS VASQUES MD
--- NOTE | 2018-07-12 14:59 | ECHO ---
Name: GRETCHEN ESCALANTE Exam:Adult Echocardiogram Study Date: 07/12/2018 10:50 AM Age: 83 yrs Reason For Study: WALL MOTION ABNORMALITY Height: 62 in Weight: 140 lb BSA: 1.6 m2 MMode/2D Measurements & Calculations IVSd: 0.70 cm Ao root diam: 2.4 cm LVIDd: 4.4 cm LA dimension: 3.3 cm LVIDs: 2.8 cm LVPWd: 0.71 cm EDV(Teich): 90.0 ml LVOT diam: 2.0 cm ESV(Teich): 30.2 ml TAPSE: 1.8 cm Doppler Measurements & Calculations MV E max krish: 61.9 cm/sec Ao V2 max: 141.6 cm/sec MV A max krish: 76.2 cm/sec Ao max P.0 mmHg MV E/A: 0.81 Ao V2 mean: 90.4 cm/sec MV dec time: 0.30 sec Ao mean P.8 mmHg Ao V2 VTI: 32.5 cm ZIGGY(I,D): 2.0 cm2 ZIGGY(V,D): 1.6 cm2 LV V1 max P.0 mmHg SV(LVOT): 64.8 ml LV V1 mean P.1 mmHg LV V1 max: 70.3 cm/sec LV V1 mean: 49.5 cm/sec LV V1 VTI: 20.0 cm TR max krish: 191.9 cm/sec Med Peak E' Krish: 4.7 cm/sec TR max P.9 mmHg Med E/e': 13.2 Lat Peak E' Krish: 8.1 cm/sec Lat E/e': 7.6 Procedure A two-dimensional transthoracic echocardiogram with color flow and Doppler was performed. The study w as technically difficult with many images being suboptimal in quality. Left Ventricle The left ventricular size, thickness and function are normal. The left ventricle is not well visualiz ed. The left ventricular ejection fraction is normal. E/A reversal consistent with but not diagnostic of poor LV compliance. Regional wall motion abnormalities cannot be excluded due to limited visualization. Right Ventricle The right ventricle is normal in size and function. Atria Normal left and right atrial size and function. Mitral Valve There is mild mitral valve thickening. There is no mitral valve stenosis. There is moderate mitral regurgitation. Tricuspid Valve There is mild tricuspid valve thickening. There is no tricuspid stenosis. There is moderate tricuspid regurgitation. Right ventricular systolic pressure is normal. Aortic Valve The aortic valve is normal in structure and function. Hemodynamically significant valvular aortic leodan nosis cannot be excluded. No aortic regurgitation is present. Pulmonic Valve The pulmonic valve is not well visualized. There is no pulmonic valvular stenosis. Trace to mild pulm onic valvular regurgitation. Great Vessels The aortic root is normal size. Pericardium/Pleura There is no pericardial effusion. Interpretation Summary The left ventricular size, thickness and function are normal The left ventricular ejection fraction is normal. The study was technically difficult with many images being suboptimal in quality. The left ventricle is not well visualized. Regional wall motion abnormalities cannot be excluded due to limited visualization. There is moderate tricuspid regurgitation. Right ventricular systolic pressure is normal. E/A reversal consistent with but not diagnostic of poor LV compliance There is no mitral valve stenosis. There is moderate mitral regurgitation. MD Anthony Arias 07/12/2018 02:59 PM
--- NOTE | 2018-07-12 17:23 | PN ---
Teaching Attending Note Name of Resident: Angela Mata ATTENDING PHYSICIAN STATEMENT I saw and evaluated the patient. I reviewed the resident's note and discussed the case with the resident. I agree with the resident's findings and plan as documented. SUBJECTIVE: Ms Mireles complains of feeling weak today, mainly in her right side. Denies cp, sob, n/v. OBJECTIVE: Last Vital Signs Temp Pulse Resp BP Pulse Ox 36.6 C 58 L 20 156/52 L 98 07/12/18 16:56 07/12/18 16:56 07/12/18 16:56 07/12/18 16:56 07/12/18 10:00 Gen: nad Pulm: ctab w/o w/r/r CV: rrr w/o m/r/g Abd: +bs, s/nt/nd Ext: no c/c/e CBC, BMP 07/12/18 05:30 07/12/18 05:30 ASSESSMENT AND PLAN: Problem List - Problems (1) Lower extremity weakness Assessment/Plan: -chronic but worsening -long d/w patient, she lives with son but concerning because she is alone during the day -she has been unable to attend outpatient PT secondary to increasing weakness -also states more unsteady and more frequent falls with last fall 2 months ago -PT consult -appreciate neurology assistance -no new CVA on MRI -may need SNF placement or other discharge plan because currently unsafe discharge home Code(s): R29.898 - OTH SYMPTOMS AND SIGNS INVOLVING THE MUSCULOSKELETAL SYSTEM Qualifiers: Laterality: right Qualified Code(s): R29.898 - Other symptoms and signs involving the musculoskeletal system (2) Fall Assessment/Plan: -as above Code(s): W19.XXXA - UNSPECIFIED FALL, INITIAL ENCOUNTER Qualifiers: Encounter type: initial encounter Qualified Code(s): W19.XXXA - Unspecified fall, initial encounter (3) Diastolic dysfunction Assessment/Plan: -ECHO reviewed -blood pressure control -monitor today, plan to restart lisinopril tomorrow Code(s): I51.89 - OTHER ILL-DEFINED HEART DISEASES (4) Hyperlipidemia Assessment/Plan: -continue statin Code(s): E78.5 - HYPERLIPIDEMIA, UNSPECIFIED Qualifiers: Hyperlipidemia type: pure hypercholesterolemia Qualified Code(s): E78.00 - Pure hypercholesterolemia, unspecified; E78.0 - Pure hypercholesterolemia (5) Labile hypertension Assessment/Plan: -HCTZ discontinued -continue amlodipine and atenolol -restart lisinopril tomorrow Code(s): R09.89 - OTH SYMPTOMS AND SIGNS INVOLVING THE CIRC AND RESP SYSTEMS (6) Seizure Assessment/Plan: -continue dilantin Code(s): R56.9 - UNSPECIFIED CONVULSIONS (7) Hypothyroid Assessment/Plan: -continue synthroid Code(s): E03.9 - HYPOTHYROIDISM, UNSPECIFIED (8) CVA, old, ataxia Assessment/Plan: -continue plavix Code(s): I69.993 - ATAXIA FOLLOWING UNSPECIFIED CEREBROVASCULAR DISEASE
--- NOTE | 2018-07-12 17:52 | PN ---
Physical Exam: SUBJECTIVE: Patient seen and examined; c/o of weakness ; chronic but worsening OBJECTIVE: Vital Signs Period Temp Pulse Resp BP Sys/Burton Pulse Ox Last 24 Hr 97.2 F-98 F 53-67 18-20 132-179/52-80 98-98 GENERAL: The patient is awake, alert, and fully oriented, in no acute distress. LUNGS: Breath sounds equal, clear to auscultation bilaterally, no wheezes, no crackles, no accessory muscle use. HEART: Regular rate and rhythm, S1, S2 without murmur, rub or gallop. ABDOMEN: Soft, nontender, nondistended, normoactive bowel sounds, no guarding, no rebound, no hepatosplenomegaly, no masses. EXTREMITIES: 2+ pulses, warm, well-perfused, no edema. NEUROLOGICAL: Cranial nerves II through XII grossly intact. Normal speech, gait not observed. Laboratory Results - last 24 hr 07/11/18 07/11/18 07/12/18 17:13 23:35 01:45 WBC RBC Hgb Hct MCV MCH MCHC RDW Plt Count MPV Absolute Neuts (auto) Neutrophils % Lymphocytes % Monocytes % Eosinophils % Basophils % Nucleated RBC % PT with INR INR PTT (Actin FS) Sodium 141 Potassium 4.3 Chloride 104 Carbon Dioxide 29 Anion Gap 8 BUN 32 H Creatinine 0.9 Creat Clearance w eGFR 59.80 Random Glucose 87 Calcium 9.0 Phosphorus 4.3 Magnesium 2.3 Total Bilirubin 0.3 AST 32 ALT 69 H Alkaline Phosphatase 36 L Creatine Kinase 74 Troponin I < 0.02 < 0.02 B-Natriuretic Peptide Total Protein 7.3 Albumin 3.3 L TSH Urine Color Yellow Urine Appearance Clear Urine pH 5.5 Ur Specific [place] 1.018 Urine Protein Negative Urine Glucose (UA) Negative Urine Ketones Negative Urine Blood Negative Urine Nitrite Negative Urine Bilirubin Negative Urine Urobilinogen 0.2 Ur Leukocyte Esterase 1+ H Urine WBC (Auto) 25 Urine RBC (Auto) 2 Urine Casts (Auto) 4 U Epithel Cells (Auto) 0.2 Urine Bacteria (Auto) 5610.6 07/12/18 07/12/18 07/12/18 05:30 05:30 05:30 WBC 7.4 RBC 3.55 L Hgb 11.6 Hct 34.8 MCV 98.2 H MCH 32.7 MCHC 33.3 RDW 16.0 H Plt Count 178 MPV 10.0 Absolute Neuts (auto) 4.5 Neutrophils % 60.5 Lymphocytes % 31.9 Monocytes % 6.5 Eosinophils % 0.4 Basophils % 0.7 Nucleated RBC % 0 PT with INR 12.30 INR 1.04 PTT (Actin FS) 31.2 Sodium 140 Potassium 4.2 Chloride 105 Carbon Dioxide 28 Anion Gap 8 BUN 32 H Creatinine 0.9 Creat Clearance w eGFR 59.80 Random Glucose 100 Calcium 8.8 Phosphorus 4.8 Magnesium 2.2 Total Bilirubin 0.2 AST 30 ALT 63 H Alkaline Phosphatase 35 L Creatine Kinase Troponin I B-Natriuretic Peptide 104.4 Total Protein 7.0 Albumin 3.1 L TSH 1.95 Urine Color Urine Appearance Urine pH Ur Specific [place] Urine Protein Urine Glucose (UA) Urine Ketones Urine Blood Urine Nitrite Urine Bilirubin Urine Urobilinogen Ur Leukocyte Esterase Urine WBC (Auto) Urine RBC (Auto) Urine Casts (Auto) U Epithel Cells (Auto) Urine Bacteria (Auto) Active Medications Generic Name Dose Route Start Last Admin Trade Name Freq PRN Reason Stop Dose Admin Amlodipine Besylate 5 mg 07/12/18 10:00 07/12/18 10:25 Norvasc - PO 5 mg DAILY [facility] Administration Atenolol 50 mg 07/12/18 10:00 07/12/18 10:26 Tenormin - PO 50 mg DAILY [facility] Administration Atorvastatin Calcium 40 mg 07/12/18 22:00 Lipitor - PO HS [facility] Clopidogrel Bisulfate 75 mg 07/12/18 10:00 07/12/18 10:26 Plavix - PO 75 mg DAILY [facility] Administration Enoxaparin Sodium 40 mg 07/12/18 10:00 07/12/18 10:25 Lovenox - SQ 40 mg DAILY [facility] Administration Levothyroxine Sodium 25 mcg 07/12/18 07:00 07/12/18 06:21 Synthroid - PO 25 mcg DAILY@0700 [facility] Administration Phenytoin Sodium 100 mg 07/12/18 06:00 07/12/18 17:20 Dilantin - PO 100 mg TID [facility] Administration Solifenacin 5 mg 07/12/18 10:00 07/12/18 10:26 Vesicare - PO 5 mg DAILY [facility] Administration ASSESSMENT/PLAN: This is a 83 year old female with a past medical history of CAD s/p CABG 2003, chronic low back pain, CVA with residual deficits, s/p left CEA, CKD, seizure disorder, BLE weakness, dysfunctional vaginal bleeding, overactive bladder who presents with generalized weakness with worsening RLE weakness #weakness ; -->RLE -r/o cva, seizure -echo , carotids, brain mri -neuro consult #hx of seizure\ -leve; cont AE #CAD s/p cabg; plavix , bb, statin #hypothyroid: levothyroxine VTE: lovenox Disposition: monitro tele; needs PT eval Visit type - Emergency Visit Emergency Visit: Yes ED Registration Date: 07/12/18 Care time: The patient presented to the Emergency Department on the above date and was hospitalized for further evaluation of their emergent condition. - New Patient This patient is new to me today: Yes Date on this admission: 07/12/18 - Critical Care Critical Care patient: No
[2018-07-12] MEDS: ATORVASTATIN CA 40 MG TABLET (FP) PO SCH (21:41)
[2018-07-13] MEDS ORDERED: PT OWN MED DRAWER 7, Y5N ONE ×2 (06:10→09:32)
[2018-07-13] MEDS: PHENYTOIN NA EXTENDED 100 MG CAPSULE (FP) PO SCH ×3 (06:38→21:34)
[2018-07-13] MEDS: LEVOTHYROXINE NA 25 MCG TABLET (FP) PO SCH (06:38)
[2018-07-13 07:37] LABS: ANION GAP 8 MMOL/L (8-16); BLOOD UREA NITROGEN 27 mg/dL (7-18); CALCIUM 9.1 mg/dL (8.5-10.1); CHLORIDE 102 mmol/L (98-107); CO2 28 mmol/L (21-32); GLUCOSE,RANDOM 104 mg/dL (74-106); MAGNESIUM 2.1 mg/dL (1.8-2.4); PHOSPHOROUS 4.1 mg/dL (2.5-4.9); POTASSIUM 4.3 mmol/L (3.5-5.1); SODIUM 137 mmol/L (136-145)
[2018-07-13] MEDS: ATENOLOL 50 MG TABLET (FP) PO SCH (09:42)
[2018-07-13] MEDS: CLOPIDOGREL BISULFATE 75 MG TABLET (FP) PO SCH (09:42)
[2018-07-13] MEDS: LISINOPRIL 20 MG TABLET (FP) PO SCH (09:42)
[2018-07-13] MEDS: SOLIFENACIN SUCCINATE 5 MG TAB (FP) PO SCH (09:42)
[2018-07-13] MEDS: amLODIPine BESYLATE 5 MG TABLET (FP) PO SCH (09:42)
[2018-07-13] MEDS: ENOXAPARIN NA (PORCINE) 40 MG/0.4 ML DISP.SYRIN SQ SCH (09:42)
--- NOTE | 2018-07-13 11:26 | EKG ---
Test Reason : Blood Pressure : / mmHG Vent. Rate : 054 BPM Atrial Rate : 054 BPM P-R Int : 158 ms QRS Dur : 110 ms QT Int : 456 ms P-R-T Axes : 066 036 046 degrees QTc Int : 432 ms SINUS BRADYCARDIA INCOMPLETE RIGHT BUNDLE BRANCH BLOCK BORDERLINE ECG WHEN COMPARED WITH ECG OF 11-JUL-2018 15:58, NO SIGNIFICANT CHANGE WAS FOUND Confirmed by CHRISSY WEISS MD ([id number]) on 07/13/2018 11:26:14 AM Referred By: Yady SOTO Confirmed By:CHRISSY WEISS MD
--- NOTE | 2018-07-13 11:49 | PN ---
Progress Note, Physician Chief Complaint: Ms Mireles appears to be feeling much better today. Says she is feeling fine to all questions. - Current Medication List Current Medications: Active Medications Amlodipine Besylate (Norvasc -) 5 mg PO DAILY [facility] Last Admin: 07/13/18 09:42 Dose: 5 mg Atenolol (Tenormin -) 50 mg PO DAILY [facility] Last Admin: 07/13/18 09:42 Dose: 50 mg Atorvastatin Calcium (Lipitor -) 40 mg PO HS [facility] Last Admin: 07/12/18 21:41 Dose: 40 mg Clopidogrel Bisulfate (Plavix -) 75 mg PO DAILY [facility] Last Admin: 07/13/18 09:42 Dose: 75 mg Enoxaparin Sodium (Lovenox -) 40 mg SQ DAILY [facility] Last Admin: 07/13/18 09:42 Dose: 40 mg Ceftriaxone Sodium 1 gm/ (Dextrose) 50 mls @ 100 mls/hr IVPB DAILY [facility]; Protocol Lactobacillus Acidophilus (Bacid -) 1 tab PO DAILY [facility] Levothyroxine Sodium (Synthroid -) 25 mcg PO DAILY@0700 [facility] Last Admin: 07/13/18 06:38 Dose: 25 mcg Lisinopril (Prinivil) 40 mg PO DAILY [facility] Last Admin: 07/13/18 09:42 Dose: 40 mg Phenytoin Sodium (Dilantin -) 100 mg PO TID [facility] Last Admin: 07/13/18 06:38 Dose: 100 mg Solifenacin (Vesicare -) 5 mg PO DAILY [facility] Last Admin: 07/13/18 09:42 Dose: 5 mg - Objective Vital Signs: Vital Signs Temperature 36.4 C 07/13/18 09:15 Pulse Rate 57 L 07/13/18 09:15 Respiratory Rate 18 07/13/18 09:15 Blood Pressure 148/71 07/13/18 09:15 O2 Sat by Pulse Oximetry (%) 99 07/13/18 09:15 Constitutional: Yes: Well Nourished, No Distress, Calm Cardiovascular: Yes: Regular Rate and Rhythm. No: Gallop, Murmur, Rub Respiratory: Yes: Regular, CTA Bilaterally. No: Rales, Rhonchi, Wheezes Gastrointestinal: Yes: Normal Bowel Sounds, Soft. No: Distention, Tenderness Extremities: Yes: WNL Edema: No Labs: CBC, BMP 07/12/18 05:30 07/13/18 05:30 INR, PTT INR 1.04 (0.83-1.09) 07/12/18 05:30 Problem List - Problems (1) Lower extremity weakness Code(s): R29.898 - OTH SYMPTOMS AND SIGNS INVOLVING THE MUSCULOSKELETAL SYSTEM Qualifiers: Laterality: right Qualified Code(s): R29.898 - Other symptoms and signs involving the musculoskeletal system (2) Fall Code(s): W19.XXXA - UNSPECIFIED FALL, INITIAL ENCOUNTER Qualifiers: Encounter type: initial encounter Qualified Code(s): W19.XXXA - Unspecified fall, initial encounter (3) Diastolic dysfunction Code(s): I51.89 - OTHER ILL-DEFINED HEART DISEASES (4) Hyperlipidemia Code(s): E78.5 - HYPERLIPIDEMIA, UNSPECIFIED Qualifiers: Hyperlipidemia type: pure hypercholesterolemia Qualified Code(s): E78.00 - Pure hypercholesterolemia, unspecified; E78.0 - Pure hypercholesterolemia (5) Labile hypertension Code(s): R09.89 - OTH SYMPTOMS AND SIGNS INVOLVING THE CIRC AND RESP SYSTEMS (6) Seizure Code(s): R56.9 - UNSPECIFIED CONVULSIONS (7) Hypothyroid Code(s): E03.9 - HYPOTHYROIDISM, UNSPECIFIED (8) CVA, old, ataxia Code(s): I69.993 - ATAXIA FOLLOWING UNSPECIFIED CEREBROVASCULAR DISEASE Assessment/Plan (1) Lower extremity weakness Assessment/Plan: -case d/w patient and son at bedside -declines SNF placement -agreeable to home PT -will d/w CM/SW about setting this up Code(s): R29.898 - OTH SYMPTOMS AND SIGNS INVOLVING THE MUSCULOSKELETAL SYSTEM Qualifiers: Laterality: right Qualified Code(s): R29.898 - Other symptoms and signs involving the musculoskeletal system (2) Fall Assessment/Plan: -as above Code(s): W19.XXXA - UNSPECIFIED FALL, INITIAL ENCOUNTER Qualifiers: Encounter type: initial encounter Qualified Code(s): W19.XXXA - Unspecified fall, initial encounter (3) Diastolic dysfunction Assessment/Plan: -ECHO reviewed -blood pressure control Code(s): I51.89 - OTHER ILL-DEFINED HEART DISEASES (4) Hyperlipidemia Assessment/Plan: -continue statin Code(s): E78.5 - HYPERLIPIDEMIA, UNSPECIFIED Qualifiers: Hyperlipidemia type: pure hypercholesterolemia Qualified Code(s): E78.00 - Pure hypercholesterolemia, unspecified; E78.0 - Pure hypercholesterolemia (5) Labile hypertension Assessment/Plan: -HCTZ discontinued -continue amlodipine and atenolol -lisinopril restarted today Code(s): R09.89 - OTH SYMPTOMS AND SIGNS INVOLVING THE CIRC AND RESP SYSTEMS (6) Seizure Assessment/Plan: -continue dilantin Code(s): R56.9 - UNSPECIFIED CONVULSIONS (7) Hypothyroid Assessment/Plan: -continue synthroid Code(s): E03.9 - HYPOTHYROIDISM, UNSPECIFIED (8) CVA, old, ataxia Assessment/Plan: -continue plavix Code(s): I69.993 - ATAXIA FOLLOWING UNSPECIFIED CEREBROVASCULAR DISEASE (9) UTI -start rocephin
[2018-07-13] MEDS ORDERED: cefTRIAXone SODIUM 1 GM VIAL ONE (12:09)
[2018-07-13] MEDS ORDERED: DEXTROSE 5%-WATER - 50 ML IVPB ONE (12:09)
[2018-07-13] MEDS: CEFTRIAXONE 1 GM in DEXTROSE 5%-WATER - 50 ML IVPB SCH (12:17)
[2018-07-13] MEDS: LACTOBACILLUS ACIDOPHILUS 1 TABLET PO SCH (12:17)
--- NOTE | 2018-07-13 18:22 | PN ---
Progress Note, Physician Chief Complaint: Pt A&Ox3; asymptomatic. She does not want to drink too much water because she has to urinate and get up to go to the bathroom, but knows that dehydration may cause her to feel dizzy.and weak. History of Present Illness: Amy Mireles is an 83yo woman (b. [facility]) with a PMH of HTN, CAD s/p "open heart surgery" (CABG?), chronic low back pain w/ BLE weakness L>R , overactive bladder, and dysfunctional vaginal bleeding who presents today reporting generalized weakness and worsening RLE weakness since she woke today along with hypotension. She reports that she was concerned that her BP was SBP 100 early this mon. She states that she checks every morning and evening because of her previous heart surgery. Per her son, at bedside, her BP is generally low in the morning; he is unsure how frequently it is down to the low 100s though states it has happened in the past. Ms Mireles states that she felt very weak and wobbly throughout the morning, but she was able to do housework by holding herself up on furniture. She rechecked her BP after the chores and noted that it was high, SBP in the upper 160's. She says that it has been "all over the place" recently , and she was concerned because "it is supposed to be 120/80." Ms Mireles states that she has leg weakness all the time and sees neurology ( Dr Doyle) and a spine/pain specialist who does injections. She says that she has chronic back pain because of "discs." Her left leg generally is weaker than the right, though, and she only started having significant problems with the right leg today. - Current Medication List Current Medications: Active Medications Amlodipine Besylate (Norvasc -) 5 mg PO DAILY [facility] Last Admin: 07/13/18 09:42 Dose: 5 mg Atenolol (Tenormin -) 50 mg PO DAILY [facility] Last Admin: 07/13/18 09:42 Dose: 50 mg Atorvastatin Calcium (Lipitor -) 40 mg PO HS [facility] Last Admin: 07/12/18 21:41 Dose: 40 mg Clopidogrel Bisulfate (Plavix -) 75 mg PO DAILY [facility] Last Admin: 07/13/18 09:42 Dose: 75 mg Enoxaparin Sodium (Lovenox -) 40 mg SQ DAILY [facility] Last Admin: 07/13/18 09:42 Dose: 40 mg Ceftriaxone Sodium 1 gm/ (Dextrose) 50 mls @ 100 mls/hr IVPB DAILY [facility]; Protocol Last Admin: 07/13/18 12:17 Dose: 100 mls/hr Lactobacillus Acidophilus (Bacid -) 1 tab PO DAILY [facility] Last Admin: 07/13/18 12:17 Dose: 1 tab Levothyroxine Sodium (Synthroid -) 25 mcg PO DAILY@0700 [facility] Last Admin: 07/13/18 06:38 Dose: 25 mcg Lisinopril (Prinivil) 40 mg PO DAILY [facility] Last Admin: 07/13/18 09:42 Dose: 40 mg Phenytoin Sodium (Dilantin -) 100 mg PO TID [facility] Last Admin: 07/13/18 13:10 Dose: 100 mg Solifenacin (Vesicare -) 5 mg PO DAILY [facility] Last Admin: 07/13/18 09:42 Dose: 5 mg - Objective Vital Signs: Vital Signs Temperature 98.5 F 07/13/18 18:11 Pulse Rate 54 L 07/13/18 18:11 Respiratory Rate 20 07/13/18 18:11 Blood Pressure 118/51 L 07/13/18 18:11 O2 Sat by Pulse Oximetry (%) 99 07/13/18 18:00 Constitutional: Yes: No Distress Eyes: Yes: WNL HENT: Yes: WNL Neck: Yes: WNL Cardiovascular: Yes: S1, S2 Respiratory: Yes: Regular Gastrointestinal: Yes: Soft ...Rectal Exam: Yes: Deferred Genitourinary: No: Anuria Breast(s): Yes: WNL Musculoskeletal: Yes: Muscle Weakness Extremities: Yes: Cool Edema: No Peripheral Pulses WNL: Yes Labs: CBC, BMP 07/12/18 05:30 07/13/18 05:30 INR, PTT INR 1.04 (0.83-1.09) 07/12/18 05:30 Problem List - Problems (1) Diastolic dysfunction Code(s): I51.89 - OTHER ILL-DEFINED HEART DISEASES (2) Fall Code(s): W19.XXXA - UNSPECIFIED FALL, INITIAL ENCOUNTER Qualifiers: Encounter type: initial encounter Qualified Code(s): W19.XXXA - Unspecified fall, initial encounter (3) Hyperlipidemia Code(s): E78.5 - HYPERLIPIDEMIA, UNSPECIFIED Qualifiers: Hyperlipidemia type: pure hypercholesterolemia Qualified Code(s): E78.00 - Pure hypercholesterolemia, unspecified; E78.0 - Pure hypercholesterolemia (4) Hypothyroid Code(s): E03.9 - HYPOTHYROIDISM, UNSPECIFIED (5) Labile hypertension Code(s): R09.89 - OTH SYMPTOMS AND SIGNS INVOLVING THE CIRC AND RESP SYSTEMS (6) Near syncope Assessment/Plan: F/u orthostatic VS. Hydration (pt has recently had gynecologic study, and says she then developed a UTI). Code(s): R55 - SYNCOPE AND COLLAPSE (7) S/P CABG (coronary artery bypass graft) Code(s): Z95.1 - PRESENCE OF AORTOCORONARY BYPASS GRAFT (8) Lower extremity weakness Code(s): R29.898 - OTH SYMPTOMS AND SIGNS INVOLVING THE MUSCULOSKELETAL SYSTEM Qualifiers: Laterality: right Qualified Code(s): R29.898 - Other symptoms and signs involving the musculoskeletal system
[2018-07-13] MEDS: ATORVASTATIN CA 40 MG TABLET (FP) PO SCH (21:34)
[2018-07-14] MEDS: PHENYTOIN NA EXTENDED 100 MG CAPSULE (FP) PO SCH ×3 (06:24→21:58)
[2018-07-14] MEDS: LEVOTHYROXINE NA 25 MCG TABLET (FP) PO SCH (06:24)
[2018-07-14 06:39] LABS: BASO % 0.6 % (0-2.0); EOS % 0.5 % (0-4.5); HEMATOCRIT 36.1 % (32.4-45.2); LYMPH % 35.3 % (8-40); MCH 32.4 pg (25.7-33.7); MCHC 33.3 g/dl (32.0-36.0); MEAN CELL VOLUME 97.2 fl (80-96); MEAN PLT VOLUME 9.8 fl (7.5-11.1); MONO % 5.8 % (3.8-10.2); NEUT % 57.8 % (42.8-82.8); PLATELET COUNT 189 K/MM3 (134-434); RBC 3.71 M/mm3 (3.60-5.2); RDW 15.4 % (11.6-15.6); WHITE BLOOD COUNT 7.8 K/mm3 (4.0-10.0)
[2018-07-14 07:09] LABS: ANION GAP 8 MMOL/L (8-16); BLOOD UREA NITROGEN 30 mg/dL (7-18); CALCIUM 8.8 mg/dL (8.5-10.1); CHLORIDE 103 mmol/L (98-107); CO2 24 mmol/L (21-32); CREATININE 0.9 mg/dL (0.55-1.3); GLUCOSE,RANDOM 107 mg/dL (74-106); MAGNESIUM 2.2 mg/dL (1.8-2.4); PHOSPHOROUS 4.7 mg/dL (2.5-4.9); POTASSIUM 4.2 mmol/L (3.5-5.1); SODIUM 135 mmol/L (136-145)
[2018-07-14] MEDS ORDERED: cefTRIAXone SODIUM 1 GM VIAL ONE (09:01)
[2018-07-14] MEDS ORDERED: DEXTROSE 5%-WATER - 50 ML IVPB ONE (09:02)
[2018-07-14] MEDS: LACTOBACILLUS ACIDOPHILUS 1 TABLET PO SCH (09:22)
[2018-07-14] MEDS: ENOXAPARIN NA (PORCINE) 40 MG/0.4 ML DISP.SYRIN SQ SCH (09:22)
[2018-07-14] MEDS: CEFTRIAXONE 1 GM in DEXTROSE 5%-WATER - 50 ML IVPB SCH (09:23)
[2018-07-14] MEDS: ATENOLOL 50 MG TABLET (FP) PO SCH (09:23)
[2018-07-14] MEDS: CLOPIDOGREL BISULFATE 75 MG TABLET (FP) PO SCH (09:23)
[2018-07-14] MEDS: amLODIPine BESYLATE 5 MG TABLET (FP) PO SCH (09:23)
[2018-07-14] MEDS: LISINOPRIL 20 MG TABLET (FP) PO SCH (09:23)
[2018-07-14] MEDS: SOLIFENACIN SUCCINATE 5 MG TAB (FP) PO SCH (09:23)
[2018-07-14] MEDS ORDERED: PT OWN MED DRAWER 7, Y5N ONE (13:40)
--- NOTE | 2018-07-14 15:33 | PN ---
Progress Note, Physician Chief Complaint: Ms Mireles is without complaint. Denies cp, sob, n/v. - Current Medication List Current Medications: Active Medications Amlodipine Besylate (Norvasc -) 5 mg PO DAILY [facility] Last Admin: 07/14/18 09:23 Dose: 5 mg Atenolol (Tenormin -) 50 mg PO DAILY [facility] Last Admin: 07/14/18 09:23 Dose: 50 mg Atorvastatin Calcium (Lipitor -) 40 mg PO HS [facility] Last Admin: 07/13/18 21:34 Dose: 40 mg Clopidogrel Bisulfate (Plavix -) 75 mg PO DAILY [facility] Last Admin: 07/14/18 09:23 Dose: 75 mg Enoxaparin Sodium (Lovenox -) 40 mg SQ DAILY [facility] Last Admin: 07/14/18 09:22 Dose: 40 mg Ceftriaxone Sodium 1 gm/ (Dextrose) 50 mls @ 100 mls/hr IVPB DAILY [facility]; Protocol Last Admin: 07/14/18 09:23 Dose: 100 mls/hr Lactobacillus Acidophilus (Bacid -) 1 tab PO DAILY [facility] Last Admin: 07/14/18 09:22 Dose: 1 tab Levothyroxine Sodium (Synthroid -) 25 mcg PO DAILY@0700 [facility] Last Admin: 07/14/18 06:24 Dose: 25 mcg Lisinopril (Prinivil) 40 mg PO DAILY [facility] Last Admin: 07/14/18 09:23 Dose: 40 mg Phenytoin Sodium (Dilantin -) 100 mg PO TID [facility] Last Admin: 07/14/18 13:58 Dose: 100 mg Solifenacin (Vesicare -) 5 mg PO DAILY [facility] Last Admin: 07/14/18 09:23 Dose: 5 mg - Objective Vital Signs: Vital Signs Temperature 36.6 C 07/14/18 14:00 Pulse Rate 57 L 07/14/18 14:00 Respiratory Rate 20 07/14/18 14:00 Blood Pressure 116/63 07/14/18 14:00 O2 Sat by Pulse Oximetry (%) 99 07/14/18 10:00 Constitutional: Yes: Well Nourished, No Distress, Calm Cardiovascular: Yes: Bradycardia. No: Gallop, Murmur, Rub Respiratory: Yes: Regular, CTA Bilaterally. No: Rales, Rhonchi, Wheezes Gastrointestinal: Yes: Normal Bowel Sounds, Soft. No: Distention, Tenderness Extremities: Yes: WNL Edema: No Labs: CBC, BMP 07/14/18 05:30 07/14/18 05:30 INR, PTT INR 1.04 (0.83-1.09) 07/12/18 05:30 Problem List - Problems (1) Lower extremity weakness Code(s): R29.898 - OTH SYMPTOMS AND SIGNS INVOLVING THE MUSCULOSKELETAL SYSTEM Qualifiers: Laterality: right Qualified Code(s): R29.898 - Other symptoms and signs involving the musculoskeletal system (2) Fall Code(s): W19.XXXA - UNSPECIFIED FALL, INITIAL ENCOUNTER Qualifiers: Encounter type: initial encounter Qualified Code(s): W19.XXXA - Unspecified fall, initial encounter (3) Diastolic dysfunction Code(s): I51.89 - OTHER ILL-DEFINED HEART DISEASES (4) Hyperlipidemia Code(s): E78.5 - HYPERLIPIDEMIA, UNSPECIFIED Qualifiers: Hyperlipidemia type: pure hypercholesterolemia Qualified Code(s): E78.00 - Pure hypercholesterolemia, unspecified; E78.0 - Pure hypercholesterolemia (5) Labile hypertension Code(s): R09.89 - OTH SYMPTOMS AND SIGNS INVOLVING THE CIRC AND RESP SYSTEMS (6) Seizure Code(s): R56.9 - UNSPECIFIED CONVULSIONS (7) Hypothyroid Code(s): E03.9 - HYPOTHYROIDISM, UNSPECIFIED (8) CVA, old, ataxia Code(s): I69.993 - ATAXIA FOLLOWING UNSPECIFIED CEREBROVASCULAR DISEASE Assessment/Plan (1) Lower extremity weakness Assessment/Plan: -stable -plan for discharge tomorrow -explained discharge plan to patient Code(s): R29.898 - OTH SYMPTOMS AND SIGNS INVOLVING THE MUSCULOSKELETAL SYSTEM Qualifiers: Laterality: right Qualified Code(s): R29.898 - Other symptoms and signs involving the musculoskeletal system (2) Fall Assessment/Plan: -as above Code(s): W19.XXXA - UNSPECIFIED FALL, INITIAL ENCOUNTER Qualifiers: Encounter type: initial encounter Qualified Code(s): W19.XXXA - Unspecified fall, initial encounter (3) Diastolic dysfunction Assessment/Plan: -ECHO reviewed -blood pressure control Code(s): I51.89 - OTHER ILL-DEFINED HEART DISEASES (4) Hyperlipidemia Assessment/Plan: -continue statin Code(s): E78.5 - HYPERLIPIDEMIA, UNSPECIFIED Qualifiers: Hyperlipidemia type: pure hypercholesterolemia Qualified Code(s): E78.00 - Pure hypercholesterolemia, unspecified; E78.0 - Pure hypercholesterolemia (5) Labile hypertension Assessment/Plan: -HCTZ discontinued -continue amlodipine, atenolol, and lisinopril Code(s): R09.89 - OTH SYMPTOMS AND SIGNS INVOLVING THE CIRC AND RESP SYSTEMS (6) Seizure Assessment/Plan: -continue dilantin Code(s): R56.9 - UNSPECIFIED CONVULSIONS (7) Hypothyroid Assessment/Plan: -continue synthroid Code(s): E03.9 - HYPOTHYROIDISM, UNSPECIFIED (8) CVA, old, ataxia Assessment/Plan: -continue plavix Code(s): I69.993 - ATAXIA FOLLOWING UNSPECIFIED CEREBROVASCULAR DISEASE (9) UTI -growing enterobacter aerogenes -susceptible to rocephin -continue rocephin day 2 -transition to cefuroxime on discharge to finish course
[2018-07-14] MEDS: ATORVASTATIN CA 40 MG TABLET (FP) PO SCH (21:59)
[2018-07-15 05:56] VITALS: TEMP 97.9
[2018-07-15] MEDS: LEVOTHYROXINE NA 25 MCG TABLET (FP) PO SCH (06:15)
[2018-07-15] MEDS: PHENYTOIN NA EXTENDED 100 MG CAPSULE (FP) PO SCH (06:15)
[2018-07-15 06:46] LABS: BASO % 0.4 % (0-2.0); EOS % 0.6 % (0-4.5); HEMATOCRIT 36.6 % (32.4-45.2); HEMOGLOBIN 12.1 GM/dL (10.7-15.3); LYMPH % 37.8 % (8-40); MCH 32.1 pg (25.7-33.7); MEAN CELL VOLUME 97.3 fl (80-96); MEAN PLT VOLUME 9.9 fl (7.5-11.1); MONO % 6.9 % (3.8-10.2); NEUT % 54.3 % (42.8-82.8); PLATELET COUNT 189 K/MM3 (134-434); RBC 3.76 M/mm3 (3.60-5.2); RDW 15.7 % (11.6-15.6); WHITE BLOOD COUNT 7.5 K/mm3 (4.0-10.0)
[2018-07-15 07:15] LABS: ANION GAP 6 MMOL/L (8-16); BLOOD UREA NITROGEN 29 mg/dL (7-18); CHLORIDE 104 mmol/L (98-107); CO2 27 mmol/L (21-32); CREATININE 0.9 mg/dL (0.55-1.3); GLUCOSE,RANDOM 104 mg/dL (74-106); MAGNESIUM 2.3 mg/dL (1.8-2.4); PHOSPHOROUS 4.8 mg/dL (2.5-4.9); POTASSIUM 4.2 mmol/L (3.5-5.1); SODIUM 137 mmol/L (136-145)
[2018-07-15 09:12] VITALS: BP 105/55; PULSE 54
[2018-07-15] MEDS ORDERED: DEXTROSE 5%-WATER - 50 ML IVPB ONE (09:24)
[2018-07-15] MEDS ORDERED: cefTRIAXone SODIUM 1 GM VIAL ONE (09:24)
--- NOTE | 2018-07-15 09:38 | PN ---
Progress Note (short form) - Note Progress Note: HPI : 83-year-old woman with PMH of CAD s/p CABG 03/01/2004 KIM->LAD, SVG->LAD- D1, SVG->OM1 and SVG->RPDA), diastolc dysfunction, labile HTN, HLD, thyroid disease, CVA with residual deficits, s/p left CEA, CKD, seizure d/o, chronic LBP presents with weakness and lightheadedness and right leg weakness. The patient states secondary to the weakness she was unable to ambulate, usually ambulates with cane assistance. The patient reports her systolic BP was noted to be in low 100s today. Her baseline is 127-137. Denies chest pain/pressure or shortness of breath, true syncope, palpitations, orthopnea, PND or LE edema. I have seen her for LBP and LS spondylosis in past. This AM, feels weakness is limited by blood pressure rather her low back an neck pain. CT HD 07/11/18 Impression: No definite CT evidence of acute intracranial pathology. Chronic left frontal cortical infarct. Chronic left occipital cortical infarct. Small chronic frontal subcortical white matter infarcts bilaterally. Possible chronic punctate pontine infarcts. MRI [facility] 04/26 Impression: Extensive old ischemic changes in the tiago and in the white matter of both cerebral hemispheres sequela most probably to long-standing hypertension and small vessel disease would There is small 5 mm nonhemorrhagic acute infarction in the right parietal lobe adjacent to the body of right lateral ventricle. The cerebellopontine angles unremarkable. No evidence of acute intracerebral hemorrhage or subdural fluid collection. Moderate dilatation of the lateral ventricles with moderate loss of volume both cerebral hemispheres. MRI IMPRESSION: No significant interval change. Moderate periventricular chronic microvascular ischemic disease changes and multiple bilateral periventricular chronic lacunar infarcts. Encephalomalacia in the left frontal lobe, superiorly as well as in the left occipital lobe, posteriorly. Chronic lacunar infarct in the mid tiago. Chronic hemorrhagic lacunar infarct in the left frontal lobe, anteriorly. No mass lesion, acute infarct or acute intracranial hemorrhage are identified Doppler : 07/12/18 Impression: The vertebral arteries appear patent. There is no Doppler evidence of a high-grade carotid artery stenosis. FU : doing better , occ cramping in LE , INC tone in legs BL - Alcohol/Substance Use Hx Alcohol Use: No - Smoking History Smoking history: Never smoked Have you smoked in the past 12 months: No Home Medications - Allergies Allergies/Adverse Reactions: Allergies Allergy/AdvReac Type Severity Reaction Status Date / Time No Known Drug Allergies Allergy Verified 07/11/18 14:42 - Home Medications Home Medications: Ambulatory Orders Amlodipine Besylate [Norvasc -] 5 mg PO DAILY 07/11/18 Atenolol [Tenormin] 50 mg PO DAILY 07/11/18 Atorvastatin Calcium 40 mg PO HS 07/11/18 Clopidogrel Bisulfate [Clopidogrel] 75 mg PO DAILY 07/11/18 Ergocalciferol [Vitamin D2] 50,000 unit PO Q7D@1000 07/11/18 Hydrochlorothiazide [Hctz -] 25 mg PO DAILY 07/11/18 Levothyroxine [Synthroid -] 25 mcg PO DAILY 07/11/18 Lisinopril [Prinivil -] 40 mg PO DAILY 07/11/18 Oxybutynin Chloride [Ditropan Xl] 10 mg PO DAILY 07/11/18 Phenytoin Sodium Extended 100 mg PO TID 07/11/18 Physical Exam-Neuro Vital Signs: Vital Signs Temperature 97.9 F 07/15/18 09:10 Pulse Rate 54 L 07/15/18 09:10 Respiratory Rate 20 07/15/18 09:10 Blood Pressure 105/55 L 07/15/18 09:10 O2 Sat by Pulse Oximetry (%) 98 07/15/18 09:00 Labs: CBCD WBC 7.5 K/mm3 (4.0-10.0) 07/15/18 05:30 RBC 3.76 M/mm3 (3.60-5.2) 07/15/18 05:30 Hgb 12.1 GM/dL (10.7-15.3) 07/15/18 05:30 Hct 36.6 % (32.4-45.2) 07/15/18 05:30 MCV 97.3 fl (80-96) H 07/15/18 05:30 MCHC 33.0 g/dl (32.0-36.0) 07/15/18 05:30 RDW 15.7 % (11.6-15.6) H 07/15/18 05:30 Plt Count 189 K/MM3 (134-434) 07/15/18 05:30 MPV 9.9 fl (7.5-11.1) 07/15/18 05:30 CMP Sodium 137 mmol/L (136-145) 07/15/18 05:30 Potassium 4.2 mmol/L (3.5-5.1) 07/15/18 05:30 Chloride 104 mmol/L (98-107) 07/15/18 05:30 Carbon Dioxide 27 mmol/L (21-32) 07/15/18 05:30 Anion Gap 6 MMOL/L (8-16) L 07/15/18 05:30 BUN 29 mg/dL (7-18) H 07/15/18 05:30 Creatinine 0.9 mg/dL (0.55-1.3) 07/15/18 05:30 Creat Clearance w eGFR 59.80 (>60) 07/15/18 05:30 Random Glucose 104 mg/dL (74-106) 07/15/18 05:30 Calcium 9.0 mg/dL (8.5-10.1) 07/15/18 05:30 Total Bilirubin 0.2 mg/dL (0.2-1) 07/12/18 05:30 AST 30 U/L (15-37) 07/12/18 05:30 ALT 63 U/L (13-61) H 07/12/18 05:30 Alkaline Phosphatase 35 U/L (45-117) L 07/12/18 05:30 Total Protein 7.0 g/dl (6.4-8.2) 07/12/18 05:30 Albumin 3.1 g/dl (3.4-5.0) L 07/12/18 05:30 CARDIAC ENZYMES Creatine Kinase 74 U/L (26-192) 07/11/18 17:13 Troponin I < 0.02 ng/ml (0.00-0.05) 07/11/18 23:35 - Neuro Exam Level Of Consciousness: Yes: Alert (awake, EOMI, no facial, motor slight RUE drift, and LLE drift , inc tone BL LE, plantars down ) Imaging - Results Cat Scan: Report Reviewed, Image Reviewed Problem List - Problems (1) CVA, old, ataxia Code(s): I69.993 - ATAXIA FOLLOWING UNSPECIFIED CEREBROVASCULAR DISEASE (2) Labile hypertension Code(s): R09.89 - OTH SYMPTOMS AND SIGNS INVOLVING THE CIRC AND RESP SYSTEMS (3) Lower extremity weakness Code(s): R29.898 - OTH SYMPTOMS AND SIGNS INVOLVING THE MUSCULOSKELETAL SYSTEM Assessment/Plan 83-year-old woman with PMH of CAD s/p CABG 03/01/2004 labile HTN, HLD, thyroid disease, CVA with residual deficits, s/p left CEA, CKD, seizure d/o, chronic LBP presents with weakness and lightheadedness and right leg weakness. The patient states secondary to the weakness she was unable to ambulate, usually ambulates with cane assistance. The patient reports her systolic BP was noted to be in low 100s today. Her baseline is 127-137. Denies chest pain/pressure or shortn ess of breath, true syncope, palpitations, orthopnea, PND or LE edema. I have seen her for LBP and LS spondylosis in past. CT HD 07/11/18 Impression: No definite CT evidence of acute intracranial pathology. Chronic left frontal cortical infarct. Chronic left occipital cortical infarct. Small chronic frontal subcortical white matter infarcts bilaterally. Possible chronic punctate pontine infarcts. MRI [facility] 04/26 Impression: Extensive old ischemic changes in the tiago and in the white matter of both cerebral hemispheres sequela most probably to long-standing hypertension and small vessel disease would There is small 5 mm nonhemorrhagic acute infarction in the right parietal lobe adjacent to the body of right lateral ventricle. The cerebellopontine angles unremarkable. No evidence of acute intracerebral hemorrhage or subdural fluid collection. Moderate dilatation of the lateral ventricles with moderate loss of volume both cerebral hemispheres. AP : HX as above with gait disturbance , unclear if this represents a new ischemic event vs blood pressure mediated; less likely LS spine disease although she has documented spinal DJD . residual deficits on exam form prior strokes. MRI BRAIN no acute changes, old cortical infarcts DOPPLER (-) cont plavix and statin she would benefit from short term rehab as she is a fall risk + and has residual gait difficulties from significant white matter disease seizures-stable, cont dilantin Otherwise neuro cleared DR ANDRADE Problem List - Problems (1) CVA, old, ataxia Code(s): I69.993 - ATAXIA FOLLOWING UNSPECIFIED CEREBROVASCULAR DISEASE (2) Labile hypertension Code(s): R09.89 - OTH SYMPTOMS AND SIGNS INVOLVING THE CIRC AND RESP SYSTEMS (3) Lower extremity weakness Code(s): R29.898 - OTH SYMPTOMS AND SIGNS INVOLVING THE MUSCULOSKELETAL SYSTEM Qualifiers: Laterality: right Qualified Code(s): R29.898 - Other symptoms and signs involving the musculoskeletal system
[2018-07-15] MEDS: LACTOBACILLUS ACIDOPHILUS 1 TABLET PO SCH (10:01)
[2018-07-15] MEDS: CEFTRIAXONE 1 GM in DEXTROSE 5%-WATER - 50 ML IVPB SCH (10:01)
[2018-07-15] MEDS: ATENOLOL 50 MG TABLET (FP) PO SCH (10:01)
[2018-07-15] MEDS: amLODIPine BESYLATE 5 MG TABLET (FP) PO SCH (10:01)
[2018-07-15] MEDS: CLOPIDOGREL BISULFATE 75 MG TABLET (FP) PO SCH (10:01)
[2018-07-15] MEDS: LISINOPRIL 20 MG TABLET (FP) PO SCH (10:01)
[2018-07-15] MEDS: ENOXAPARIN NA (PORCINE) 40 MG/0.4 ML DISP.SYRIN SQ SCH (10:01)
[2018-07-15] MEDS: SOLIFENACIN SUCCINATE 5 MG TAB (FP) PO SCH (10:01)
--- NOTE | 2018-07-15 10:28 | PN ---
Progress Note, Physician Chief Complaint: Events noted Not in distress History of Present Illness: Patient was seen and examined. Awake and alert. Chart was reviewed Denies chest pain, SOB or palpitations - Current Medication List Current Medications: Active Medications Amlodipine Besylate (Norvasc -) 5 mg PO DAILY [facility] Last Admin: 07/15/18 10:01 Dose: 5 mg Atenolol (Tenormin -) 50 mg PO DAILY [facility] Last Admin: 07/15/18 10:01 Dose: 50 mg Atorvastatin Calcium (Lipitor -) 40 mg PO HS [facility] Last Admin: 07/14/18 21:59 Dose: 40 mg Clopidogrel Bisulfate (Plavix -) 75 mg PO DAILY [facility] Last Admin: 07/15/18 10:01 Dose: 75 mg Enoxaparin Sodium (Lovenox -) 40 mg SQ DAILY [facility] Last Admin: 07/15/18 10:01 Dose: 40 mg Ceftriaxone Sodium 1 gm/ (Dextrose) 50 mls @ 100 mls/hr IVPB DAILY [facility]; Protocol Last Admin: 07/15/18 10:01 Dose: 100 mls/hr Lactobacillus Acidophilus (Bacid -) 1 tab PO DAILY [facility] Last Admin: 07/15/18 10:01 Dose: 1 tab Levothyroxine Sodium (Synthroid -) 25 mcg PO DAILY@0700 [facility] Last Admin: 07/15/18 06:15 Dose: 25 mcg Lisinopril (Prinivil) 40 mg PO DAILY [facility] Last Admin: 07/15/18 10:01 Dose: 40 mg Phenytoin Sodium (Dilantin -) 100 mg PO TID [facility] Last Admin: 07/15/18 06:15 Dose: 100 mg Solifenacin (Vesicare -) 5 mg PO DAILY [facility] Last Admin: 07/15/18 10:01 Dose: 5 mg - Objective Vital Signs: Vital Signs Temperature 97.9 F 07/15/18 09:10 Pulse Rate 54 L 07/15/18 09:10 Respiratory Rate 20 07/15/18 09:10 Blood Pressure 105/55 L 07/15/18 09:10 O2 Sat by Pulse Oximetry (%) 98 07/15/18 09:00 Eyes: Yes: PERRL HENT: Yes: Atraumatic Neck: Yes: Supple Cardiovascular: Yes: Regular Rate and Rhythm, Murmur (SM), S1, S2 Respiratory: Yes: CTA Bilaterally Gastrointestinal: Yes: Normal Bowel Sounds, Soft. No: Tenderness Edema: No Labs: CBC, BMP 07/15/18 05:30 07/15/18 05:30 INR, PTT INR 1.04 (0.83-1.09) 07/12/18 05:30 Problem List - Problems (1) CVA, old, ataxia Code(s): I69.993 - ATAXIA FOLLOWING UNSPECIFIED CEREBROVASCULAR DISEASE (2) Diastolic dysfunction Code(s): I51.89 - OTHER ILL-DEFINED HEART DISEASES (3) Hyperlipidemia Code(s): E78.5 - HYPERLIPIDEMIA, UNSPECIFIED Qualifiers: Hyperlipidemia type: pure hypercholesterolemia Qualified Code(s): E78.00 - Pure hypercholesterolemia, unspecified; E78.0 - Pure hypercholesterolemia (4) Hypothyroid Code(s): E03.9 - HYPOTHYROIDISM, UNSPECIFIED (5) Labile hypertension Code(s): R09.89 - OTH SYMPTOMS AND SIGNS INVOLVING THE CIRC AND RESP SYSTEMS (6) Near syncope Code(s): R55 - SYNCOPE AND COLLAPSE (7) S/P CABG (coronary artery bypass graft) Code(s): Z95.1 - PRESENCE OF AORTOCORONARY BYPASS GRAFT Assessment/Plan 1. CAD s/p CABG, angina pectoris 2. Diastolic dysfunction 3. Labile hypertension 4. Hyperlipidemia 5. Post left CEA PLAN: 1. Continue Norvasc 5 mg QD, Atenolol 50 mg QD with checking orthostasis. Resume Lisinopril as hemodynamics tolerate 2. [facility] Teo Lam MD
--- NOTE | 2018-07-15 10:54 | DS ---
Physical Examination Vital Signs: Vital Signs Temperature 36.6 C 07/15/18 09:10 Pulse Rate 54 L 07/15/18 09:10 Respiratory Rate 20 07/15/18 09:10 Blood Pressure 105/55 L 07/15/18 09:10 O2 Sat by Pulse Oximetry (%) 98 07/15/18 09:00 Constitutional: Yes: Well Nourished, No Distress, Calm Cardiovascular: Yes: Regular Rate and Rhythm. No: Gallop, Murmur, Rub Respiratory: Yes: Regular, CTA Bilaterally. No: Rales, Rhonchi, Wheezes Gastrointestinal: Yes: Normal Bowel Sounds, Soft. No: Distention, Tenderness Extremities: Yes: WNL Edema: No Labs: CBC, BMP 07/15/18 05:30 07/15/18 05:30 Discharge Summary Reason For Visit: WEAKNESS OF LOWER EXTREMITY Current Active Problems CVA, old, ataxia (Acute) Diastolic dysfunction (Acute) Fall (Acute) Hyperlipidemia (Acute) Hypothyroid (Acute) Labile hypertension (Acute) Near syncope (Acute) S/P CABG (coronary artery bypass graft) (Acute) Seizure (Acute) Condition: Stable - Instructions Diet, Activity, Other Instructions: Resume previous diet and activity. Home VNS/PT ordered. Start cefuroxime on 07/16 and finish 4 day course. Referrals: Terell Cabral MD [Staff Physician] - Hugh Doyle DO [Staff Physician] - Cedrick Marin [Primary Care Provider] - 1 Week Disposition: VNS/HOME HEALTH CARE - Home Medications Comprehensive Discharge Medication List: Ambulatory Orders Amlodipine Besylate [Norvasc -] 5 mg PO DAILY 07/11/18 Atenolol [Tenormin] 50 mg PO DAILY 07/11/18 Atorvastatin Calcium 40 mg PO HS 07/11/18 Clopidogrel Bisulfate [Clopidogrel] 75 mg PO DAILY 07/11/18 Ergocalciferol [Vitamin D2] 50,000 unit PO Q7D@1000 07/11/18 Levothyroxine [Synthroid -] 25 mcg PO DAILY 07/11/18 Lisinopril [Prinivil -] 40 mg PO DAILY 07/11/18 Oxybutynin Chloride [Ditropan Xl] 10 mg PO DAILY 07/11/18 Phenytoin Sodium Extended 100 mg PO TID 04/04/19 Cefuroxime Axetil [Ceftin -] 250 mg PO BID #8 tablet 07/15/18 Lactobacillus Acidophilus [Bacid -] 1 tab PO DAILY #10 tab 07/15/18
== END 2018-07-15 13:28 | disposition home health service (06) | DRG 556 ==
LOC: JER 14:04 → JERBED 19:59 → INTOOBSV 19:59 → J4W 22:53 → OBSVTOIN 07-12 11:40
PROVIDERS: ADMIT Internal Medicine; ATTEND Internal Medicine
DX: R29.898 Other symptoms and signs involving the musculoskeletal system (principal); E46 Unspecified protein-calorie malnutrition; N17.9 Acute kidney failure, unspecified; N39.0 Urinary tract infection, site not specified; I25.10 Atherosclerotic heart disease of native coronary artery without angina pectoris; M54.5 Low back pain; N32.81 Overactive bladder; E78.00 Pure hypercholesterolemia, unspecified; I12.9 Hypertensive chronic kidney disease with stage 1 through stage 4 chronic kidney disease, or unspecified chronic kidney disease; N18.9 Chronic kidney disease, unspecified; R56.9 Unspecified convulsions; R55 Syncope and collapse; E88.09 Other disorders of plasma-protein metabolism, not elsewhere classified; R26.81 Unsteadiness on feet; I69.993 Ataxia following unspecified cerebrovascular disease; R09.89 Other specified symptoms and signs involving the circulatory and respiratory systems; I45.10 Unspecified right bundle-branch block; R00.1 Bradycardia, unspecified; I51.89 Other ill-defined heart diseases; W19.XXXA Unspecified fall, initial encounter; M47.897 Other spondylosis, lumbosacral region; Z95.1 Presence of aortocoronary bypass graft
CPT/HCPCS: 36415; 70450-TC; 70551-TC; 71045-TC-FY; 80048; 80053; 80185; 80186; 81003; 82550; 83735; 83880; 84100; 84443; 84484; 85025; 85610; 85730; 87086; 87186; 93005; 93010; 93306-TC; 93880-TC; 97116-GP; 97161-GP; 99281-25; 99285-25; G0378